=== PATIENT | male | born 1985 | race Caucasian/White ===

== ENCOUNTER 2021-09-28 14:46 | Emergency (ER) | payer OTHER, SELFPAY ==
--- NOTE | ~2021-09-28 | XR_ITS ---
EXAMINATION: XR chest 2V 09/28/2021 17:31 INDICATION: Cough. Hemoptysis. Chest pain. PROCEDURE: 2 view chest COMPARISON: No prior studies for comparison. FINDINGS: The lungs are clear. The cardiomediastinal silhouette is within normal limits. There are no pleural effusions. There is no pneumothorax suspected. IMPRESSION: 1: NO ACUTE CARDIOPULMONARY DISEASE. Reviewed, dictated and finalized at location A. UNTS PAYABLE COORDINATOR
[2021-09-28 15:29] VITALS: BP 149/79; PULSE 90; RESP 18; TEMP 36.9; O2SAT 99
--- NOTE | 2021-09-28 15:36 | ED.GENADULT ---
HPI - General Adult General Chief complaint: Upper Respiratory Infection Stated complaint: coughing up blood Time Seen by Provider: 09/28/21 15:36 Source: patient Mode of arrival: ambulatory Limitations: no limitations History of Present Illness HPI narrative: 36-year-old man with a history of smoking comes in today complaining cough that has been present for last year. Patient states in the last few days his cough got worse and become productive of small amounts of blood. He states he has chest pain only when he coughs and he has no shortness of breath, fever, vomiting, lightheadedness, palpitations, sick exposures, vomiting, diarrhea. He has not had the COVID vaccine. Onset (ago): day(s) (Worse in the last 2) Location: chest Radiation: non-radiation Severity: moderate Quality: burning and aching Pain Consistency: intermittent Relieving factors: none Exacerbating factors: other (Cough) Associated symptoms: chest pain and cough Related Data Home Medications Medication Instructions Recorded Confirmed albuterol sulfate See Rx Instructions .ROUTE .COMPLEX 09/28/21 09/28/21 Allergies Allergy/AdvReac Type Severity Reaction Status Date / Time No Known Allergies Allergy Mild Verified 09/28/21 15:45 Review of Systems Review of Systems: All systems reviewed & are unremarkable except as noted in HPI and below Constitutional: Constitutional: Denies chills and Denies fever(s) ENT: Denies nasal congestion and Denies sore throat Cardiovascular: Cardiovascular: Reports chest pain, Denies rapid heart rate and Denies radiating jaw, neck or arm pain Respiratory: Respiratory: Reports cough, Denies dyspnea and Denies wheezing Comments: Hemoptysis Gastrointestinal: Gastrointestinal: Denies abdominal pain, Denies diarrhea, Denies nausea and Denies vomiting Genitourinary: Genitourinary: Denies dysuria and Denies urinary frequency Musculoskeletal: Musculoskeletal: Denies arthralgias and Denies joint swelling Integumentary/Breasts: Skin/Breast: Denies pruritus, Denies erythema and Denies rash Neurologic: Denies vertigo, Denies dizziness and Denies syncope Hematologic/Lymphatic: Hematologic/Lymphatic: Denies easy bleeding and Denies easy bruising Allergic/Immunologic: Allergic/Immunologic: Denies lip swelling and Denies throat swelling PMFSH Past Medical History Medical History (Updated 09/28/21 @ 17:51 by Andrea Sykes MD) Asthma Surgical History Surgical History (Updated 09/28/21 @ 17:07 by Andrea Sykes MD) Previous back surgery Social History Social History (Updated 09/28/21 @ 17:08 by Andrea Sykes MD) Smoking status: Current every day smoker Substance use: former Living arrangements: with family Exam Const: Orientation/consciousness: patient oriented x3 Limitations: no limitations Other: Mild acute distress. HENMT: Head: normal to inspection Ears: external ears normal, TM's normal bilaterally and EAC's normal General nose exam: Normal nares present Face and sinus: normal facial exam Mouth: Yes moist mucous membranes Throat: posterior oropharynx normal Eyes: Conjunctivae: conjunctivae normal Pupils: Equal, round and reactive pupils present EOM: EOMs intact bilaterally Resp: Effort & Inspection: normal respiratory effort and no use of accessory muscles Auscultation: clear to auscultation bilaterally, no rales, no rhonchi, wheezes (Few scattered late expiratory) and diminished lung sounds (Mildly and throughout) Cardio: Rate: regular rate Rhythm: regular rhythm Skin: General skin exam: normal color, no jaundice and no pallor Rashes: no rashes Neuro: General: patient oriented x3, moves all extremities, no focal motor deficits and CN's II-XI intact bilaterally Speech: normal speech Gait exam (Neuro): Normal gait present Extrem: General: normal to inspection and no clubbing, cyanosis or edema Psych: Appearance: grossly normal and well kempt Mental Status: mental status
--- NOTE | 2021-09-28 15:42 | ECG_ITS ---
Measurements Intervals [place] Rate: 76 P: 59 [place]: 154 QRS: 77 QRSD: 94 T: 55 QT: 340 QTc: 383 Interpretive Statements SINUS RHYTHM BASELINE ARTIFACT- I, III, AVL, V5 NORMAL ECG Electronically Signed On 09-28-2021 16:13:29 BLOCK MACHINE OPERATOR by Ken Parker D.O.
[2021-09-28 16:08] LABS: Basophils Absolute Auto 0.04 K/mm3 (0.00-0.10); Basophils Percent Auto 0.4 % (0.0-1.0); Eosinophils Absolute Auto 0.07 K/mm3 (0.02-0.50); Eosinophils Percent Auto 0.7 % (1.0-6.0); Hematocrit 47.7 % (40.0-54.0); Hemoglobin 15.5 g/dL (14.0-18.0); Immature Granulocyte Absolute 0.05 K/mm3 (0.00-0.00); Immature Granulocyte Percent A 0.5 % (0.0-0.0); Lymphocytes Absolute Auto 1.63 K/mm3 (1.10-4.50); Lymphocytes Percent Auto 15.7 % (18.0-42.0); Mean Corpuscular HGB Conc 32.5 g/dL (32.0-36.0); Mean Corpuscular Hemoglobin 30.1 pg (27.0-31.0); Mean Corpuscular Volume 92.6 fL (78.0-102.0); Mean Platelet Volume 10.4 fl (8.7-11.0); Monocytes Absolute Auto 0.73 K/mm3 (0.10-0.90); Neutrophils Absolute Auto 7.9 K/mm3 (1.7-7.2); Neutrophils Percent Auto 75.7 % (50.0-70.0); Platelet Count Result 224 K/mm3 (150-420); Red Blood Count 5.15 M/mm3 (4.70-6.10); Red Cell Distribution Width 13.4 % (11.6-14.4); White Blood Count 10.4 K/mm3 (4.8-10.8)
[2021-09-28 16:21] LABS: D Dimer 0.19 mg/L (0.19-0.50)
[2021-09-28 16:32] LABS: Alanine Aminotransferase 20 U/L (16-63); Albumin Level 3.6 g/dL (3.4-5.0); Alkaline Phosphatase 46 U/L (46-116); Anion Gap 8 mmol/L (8-16); Aspartate Amino Transferase < 10 U/L (15-37); Bilirubin,Total 0.3 mg/dL (0.00-1.00); Blood Urea Nitrogen 13 mg/dL (7-18); Calcium 8.6 mg/dL (8.5-10.1); Carbon Dioxide 29 mmol/L (21-32); Chloride 106 mmol/L (98-108); Estimated CRCL calculation 95 ml/min; Estimated Glomerular Filt Rate > 60; Glucose 87 mg/dL (70-99); Osmolality Calculated 295 mOsm/kg (285-295); Potassium 3.9 mmol/L (3.5-5.1); Sodium 143 mmol/L (136-145); Total Protein 6.6 g/dL (6.4-8.2)
[2021-09-28 16:34] LABS: Troponin I 8.9 ng/L (0.00-60.4)
[2021-09-28 16:44] LABS: SARS-CoV-2 RNA PCR Negative (Negative)
[2021-09-28 18:07] VITALS: BP 138/84; PULSE 74; RESP 16; O2SAT 100
== END 2021-09-28 18:08 | disposition home or self-care (01) ==
PROVIDERS: Emergency Provider Emergency Medicine; PCP Family Medicine
DX: J45.41 Moderate persistent asthma with (acute) exacerbation (principal); J20.9 Acute bronchitis, unspecified; Z20.822 Contact with and (suspected) exposure to COVID-19
CPT/HCPCS: 36415; 71046; 80053; 84484; 85025; 85380; 93005; 99283; 99284; C9803; U0003; U0005

== ENCOUNTER 2021-10-04 09:29 | Emergency (ER) | payer OTHER, SELFPAY ==
--- NOTE | ~2021-10-04 | XR_ITS ---
EXAMINATION: XR chest 2V DATE: 10/04/2021 09:50 INDICATION: Right-sided chest pain TECHNIQUE: PA and lateral views of the chest were obtained. COMPARISON: Chest radiograph dated 09/28/2021 FINDINGS: The lungs remain clear with no focal airspace opacities, pulmonary edema, pleural effusion or pneumot horax. The cardiomediastinal silhouette is normal. Mild lower thoracic levocurvature with mild spondy losis. IMPRESSION: 1. No acute cardiopulmonary disease. Reviewed, dictated and finalized at location A. FACTURING AREA MANAGER
--- NOTE | 2021-10-04 09:34 | ECG_ITS ---
Measurements Intervals [place] Rate: 60 P: 35 [place]: 146 QRS: 79 QRSD: 89 T: 68 QT: 373 QTc: 374 Interpretive Statements SINUS RHYTHM VOLTAGE CRITERIA FOR LVH BORDERLINE ECG Electronically Signed On 10-04-2021 12:17:47 DECK SUPERVISOR by Ken Parker D.O.
[2021-10-04 09:44] VITALS: BP 137/72; PULSE 60; RESP 16; TEMP 36.2; O2SAT 100
[2021-10-04 10:07] LABS: Basophils Absolute Auto 0.1 K/mm3 (0.0-0.1); Basophils Percent Auto 0.4 % (0.2-1.2); Eosinophils Absolute Auto 0.2 K/mm3 (0-0.3); Eosinophils Percent Auto 1.2 % (0-4.4); Hematocrit 46.8 % (42.0-52.0); Hemoglobin 15.5 g/dL (14.0-18.0); Immature Granulocyte Absolute 0.05 K/mm3 (0.00-0.031); Immature Granulocyte Percent A 0.4 % (0-0.5); Lymphocytes Absolute Auto 1.95 K/mm3 (0.9-3.2); Lymphocytes Percent Auto 16.1 % (18.3-44.2); Mean Corpuscular HGB Conc 33.1 g/dl (32-36); Mean Corpuscular Volume 90.5 fl (80-100); Mean Platelet Volume 10.3 fl (7.4-10.4); Monocytes Absolute Auto 0.6 K/mm3 (0.1-0.6); Monocytes Percent Auto 5.2 % (2.6-8.5); Neutrophils Absolute Auto 9.3 K/mm3 (1.3-6.7); Neutrophils Percent Auto 76.7 % (45.5-73.1); Platelet Count Result 212 k/mm3 (150-375); Red Blood Count 5.17 M/mm3 (4.6-6.20); Red Cell Distribution Width 13.3 % (11.5-14.5); White Blood Count 12.1 K/mm3 (4.5-10.0)
[2021-10-04 10:20] LABS: Alanine Aminotransferase 17 U/L (4-50); Albumin Level 4.2 g/dL (3.5-5.1); Alkaline Phosphatase 34 U/L (38-126); Anion Gap 5 mmol/L (8-16); Aspartate Amino Transferase 27 U/L (17-59); Bilirubin,Total 0.3 mg/dL (0.2-1.3); Blood Urea Nitrogen 14 mg/dL (9-20); Calcium 8.6 mg/dL (8.4-10.2); Carbon Dioxide 25 mmol/L (22-30); Chloride 103 mmol/L (98-107); Estimated CRCL calculation 126 ml/min; Estimated Glomerular Filt Rate > 60; Glucose 89 mg/dL (65-110); Lipase 36 U/L (23-300); Potassium 3.9 mmol/L (3.4-5.0); Sodium 133 mmol/L (137-145)
[2021-10-04 10:24] LABS: INR 0.9; Partial Thromboplastin Time 27.8 SECONDS (22.3-36.8); Prothrombin Time 12.3 Seconds (11.1-14.7)
[2021-10-04 10:31] LABS: Troponin I < 0.012 ng/mL (0.000-0.034)
--- NOTE | 2021-10-04 10:49 | PC.NURSE ---
reports chronic productive cough from white to brown; chest pain is worse with inspiration; has not decreased smoking.
--- NOTE | 2021-10-04 11:16 | PC.NURSE ---
I did not obtain this EKG
--- NOTE | 2021-10-04 11:37 | PC.NURSE ---
Report and care to MYRTLE Katz
--- NOTE | 2021-10-04 11:40 | ED.GENADULT ---
HPI - General Adult General Chief complaint: Chest Pain Stated complaint: rRSided Chest Pain Time Seen by Provider: 10/04/21 11:05 History of Present Illness HPI narrative: Patient is a 36-year-old male who presents the ER reports of dizziness and chest pain. Patient reports last night when going to bed when he turned onto his side he experienced dizziness where the entire room was moving. Today while at work she experienced a dizziness again and it coincided with some achiness to his right chest. No nausea or sweats. Reports he has had chronic cough for the last year but over the last week he has had worsening of his cough. He has had a Covid swab that was negative. No ringing in his ears. No history of heart disease. Related Data Home Medications Medication Instructions Recorded Confirmed albuterol sulfate See Rx Instructions .ROUTE .COMPLEX 09/28/21 09/28/21 Allergies Allergy/AdvReac Type Severity Reaction Status Date / Time No Known Allergies Allergy Mild Verified 10/04/21 10:44 Review of Systems Review of Systems: All systems reviewed & are unremarkable except as noted in HPI and below Constitutional: Constitutional: Denies chills, Denies fever(s) and Denies weakness ENT: Reports dizziness, Denies nasal congestion and Denies sore throat Cardiovascular: Cardiovascular: Reports chest pain, Denies rapid heart rate and Denies radiating jaw, neck or arm pain Respiratory: Respiratory: Reports cough, Denies dyspnea and Denies wheezing Gastrointestinal: Gastrointestinal: Denies abdominal pain, Denies nausea and Denies vomiting Neurologic: Denies headache(s), Denies focal weakness and Denies numbness PMFSH Past Medical History Medical History (Updated 10/04/21 @ 13:43 by Wang Euceda MD) Asthma Surgical History Surgical History (Updated 10/04/21 @ 11:43 by Wang Euceda MD) History of ankle surgery Previous back surgery Social History Social History (Updated 09/28/21 @ 17:08 by Andrea Sykes MD) Smoking status: Current every day smoker Substance use: former Exam Narrative: GENERAL: Well-appearing, well-nourished, and in no acute distress. HEAD: Normocephalic, atraumatic. EYES: PERRL and EOMI. ENT: TMs normal bilaterally with your canals free of cerumen. External ear normal. CHEST: Clear to auscultation. No respiratory distress. HEART: Regular rate and rhythm. Normal peripheral pulses. ABDOMEN: Soft, nontender, nondistended. EXTREMITIES: Normal range of motion. No edema. NEURO: Alert and oriented x3. PSYCH: Normal mood and affect. Course Course Emergency Course: Patient informed of results. Meclizine given for vertigo. Troponin negative x2. Discharge home. Vital Signs Vital signs: Vital Signs Temperature 97.2 F L 10/04/21 09:44 Pulse Rate 60 10/04/21 09:44 Respiratory Rate 16 10/04/21 09:44 Blood Pressure 137/72 10/04/21 09:44 Pulse Oximetry 100 10/04/21 09:44 Temperature 97.2 F L 10/04/21 09:44 Pulse Rate 60 10/04/21 09:44 Respiratory Rate 16 10/04/21 09:44 Blood Pressure 137/72 10/04/21 09:44 Pulse Oximetry 100 10/04/21 09:44 Medical Decision Making Vital Signs Vital Signs: Vital Signs Temperature 97.2 F L 10/04/21 09:44 Pulse Rate 60 10/04/21 09:44 Respiratory Rate 16 10/04/21 09:44 Blood Pressure 137/72 10/04/21 09:44 Pulse Oximetry 100 10/04/21 09:44 Temperature 97.2 F L 10/04/21 09:44 Pulse Rate 60 10/04/21 09:44 Respiratory Rate 16 10/04/21 09:44 Blood Pressure 137/72 10/04/21 09:44 Pulse Oximetry 100 10/04/21 09:44 Lab Data Result diagrams: 10/04/21 09:56 10/04/21 09:56 Labs: Lab Results 10/04/21 10/04/21 10/04/21 Range/Units 09:56 09:56 09:56 WBC 12.1 H (4.5-10.0) K/mm3 RBC 5.17 (4.6-6.20) M/mm3 Hgb 15.5 (14.0-18.0) g/dL Hct 46.8 (42.0-52.0) % MCV 90.5 (80-100) fl MCH 30.0 (26-34) pg MCHC 33.1
[2021-10-04] MEDS: MECLIZINE HCL 25 MG TABLET PO (11:42)
[2021-10-04 13:24] LABS: Troponin I < 0.012 ng/mL (0.000-0.034)
== END 2021-10-04 14:07 | disposition home or self-care (01) ==
PROVIDERS: Emergency Medicine; Emergency Provider Emergency Medicine; PCP Family Medicine
DX: R42 Dizziness and giddiness (principal); J45.909 Unspecified asthma, uncomplicated
CPT/HCPCS: 36415; 71046; 80053; 83690; 84484; 85025; 85610; 85730; 93005; 99284; A9270